=== PATIENT | female | born 1970 | race African-American/Black ===

== ENCOUNTER 2016-08-14 17:06 | Emergency (ER) | payer OTHER ==
[~2016-08-14] VITALS: Ht 167.6 cm; Wt 99.3 kg
[~2016-08-14 17:06] MED LIST: ALBUTEROL0.09 MG/A1 INH; CYCLOBENZAPRINE10 M1 PO; INDOMETHACIN50 MG PO; NAPROSYN 500 M500 MG PO; NAPROSYN500 M1 PO; NORFLEX100 MG PO; PREDNISONE 20MG20 MG PO; VICODIN 300 MG-1 TAB PO; VICODIN 5-3001 EACH PO; ZITHROMAX Z-PA250 M1 PO
--- NOTE | 2016-08-14 19:34 | ED UPPER/LOWER EXTREMITY COMPL ---
History of Present Illness General Chief Complaint: Upper Extremity Injury Stated Complaint: R ARM PAIN/CANT MOVE IT Source: patient Exam Limitations: no limitations Vital Signs & Intake/Output Vital Signs & Intake/Output ED Intake and Output 08/15 0000 08/14 1200 Intake Total Output Total Balance Patient 219 lb Weight Allergies Coded Allergies: NO KNOWN ALLERGIES (08/14/16) Reconcile Medications Albuterol Sulfate (Albuterol Sulfate Hfa) 8.5 GM HFA.AER.AD 2 PUFF INH Q4-6 PRN ASTHMA USE WITH SPACER FOR BEST EFFECT Azithromycin (Zithromax Z-Min) 250 MG CAP 1 DP PO AD SINUSITIS 2 the first day followed by 1 for days 2-5 Cyclobenzaprine HCl 10 MG TABLET 1 TAB PO QPM MUSCLE SPASMS HYDROCODONE/ACETAMINOPHEN (Vicodin 5-300 MG Tablet) 5 MG-300 MG TABLET 1 TAB PO Q6P PRN BACK PAIN Hydrocodone/Acetaminophen (Vicodin 5-300 MG Tablet) 1 EACH TABLET 1 TAB PO Q6HR PRN PAIN Indomethacin 50 MG CAPSULE 1 CAP PO TID PRN PAIN with food Naproxen (Naprosyn) 250 MG TABLET 1 TAB PO BID PRN BACK PAIN Naproxen (Naprosyn) 500 MG TABLET 1 TAB PO BID PAIN Naproxen (Naprosyn) 500 MG TABLET 1 TAB PO BID PRN inflammatoin Orphenadrine Citrate (Norflex) [address] 1 TAB PO BID PRN SPASMS Oxycodone HCl/Acetaminophen (Percocet 5-325 MG Tablet) 5 MG-325 MG TABLET 1-2 TAB PO 4 TIMES/DAY PRN pain Prednisone 20 MG TABLET 3 TAB PO DAILY ASTHMA TAKE WITH FOOD AND AT THE SAME TIME A DAY FOR A TOTAL OF 5 DAYS Prednisone 20 MG TABLET 1 TAB PO BID GOUT Triage Note: PT TO ED FOR 03/27 R ARM PAIN WITH SWELLING. PT REPORTS UNABLE TO MOVE ARM, +CMS TO R ARM. PT REPORTS TAKING VICODIN 0700 TODAY WITHOUT RELIEF. PT MEDICATED WITH 600 MG MOTRIN IN TRIAGE. ?INJURY ON SUNDAY AFTER WALKING DOG. Triage Nurses Notes Reviewed? yes : No Patient currently breastfeeds: No HPI: severe R shoulder pain after she was kneeling down and her dog pulled her ( holding the leash) , felt severe pain in the anterior R shoulder. this was 5 days ago. she has not been able to raise her arm at the shoulder since. severe pain with any motino, swelling, no previous injury, she has leftover vicodin from a previous injury that she was taking without relief. (WAYNE DUNCAN) Past History Travel History Traveled to [place] past 21 day No Medical History Any Pertinent Medical History? see below for history Neurological: NONE EENT: NONE Cardiovascular: NONE Respiratory: ASTHMA CHILD Gastrointestinal: NONE Hepatic: NONE Renal: NONE Musculoskeletal: NONE Psychiatric: NONE Endocrine: NONE Cancer(s): CERVICAL CANCER REQUIRING A TOTAL ABDOMINAL HYSTERECTOMY AND PARTIAL SALPINGO-OOPHORECTOMY DIGITAL STRATEGIST SENIOR MANAGER/Reproductive: CERVICAL CANCER WITH TOTAL ABDOMINAL HYSTERECTOMY AND SINGLE OOPHORECTOMY Tetanus Vaccine: 01/20/13 Surgical History Surgical History: non-contributory Psychosocial History What is your primary language Romansh Tobacco Use: Never used Family History Hx Contributory? No (WAYNE DUNCAN) Review of Systems Review of Systems Constitutional: Reports: see HPI. EENTM: Reports: no symptoms. Respiratory: Reports: no symptoms. Cardiovascular: Reports: no symptoms. Gastrointestinal/Abdominal: Reports: no symptoms. Genitourinary: Reports: no symptoms. Musculoskeletal: Reports: see HPI. Skin: Reports: no symptoms. Neurological/Psychological: Reports: no symptoms. Hematologic/Endocrine: Reports: no symptoms. Immunological: Reports: no symptoms. All Other Systems: Reviewed and Negative (WAYNE DUNCAN) Physical Exam Physical Exam General Appearance: well developed/nourished Comments: Well-developed well-nourished no apparent distress. HEENT: Atraumatic, extraocular motion intact Neck: Supple, no lymphadenopathy Back: Nontender Respiratory: No respiratory distress Extremities: No edema, full range of motion Right shoulder, tenderness is severe anterior and lateral. She has swelling noted anteriorly proximal humeral region. Range of motion is severely limited secondary to pain at the shoulder, she cannot forward elevate or abduct the arm away from her body due to pain. Elbow examination and wrist examination is benign, full range of motion. Neurovascularly intact. Neuro: Alert and oriented x3 Psych: Mood affect normal, normal memory normal judgment. Skin: Warm and dry, no rash on exposed skin (WAYNE DUNCAN) Progress Differential Diagnosis: compartment syndrome, contusion, dislocation, fracture, gout, sprain, tendon injury Plan of Care: Orders Procedure Date/time Status Durable Medical Equipment 08/14 1944 Active Diagnostic Imaging: Viewed by Me: Radiology Read. Discussed w/RAD: Radiology Read. Radiology Impression: PATIENT: BERNY HE PRESENT AGE: 45 PATIENT ACCOUNT NO: [id number] : 74 LOCATION: [facility] ORDERING PHYSICIAN: WAYNE MARIE SERVICE DATE: 08/14/16 EXAM TYPE : RAD - XRY-SHOULDER COMPLETE-RIGHT EXAMINATION: XR SHOULDER, RIGHT CLINICAL INFORMATION: Pain. Evaluate for dislocation. COMPARISON: None TECHNIQUE: Three views of the right shoulder. FINDINGS: The bones and soft tissues are normal. No fracture. Glenohumeral and acromioclavicular alignment is anatomic with normal joint space. No abnormal soft tissue calcifications. IMPRESSION: No fracture or dislocation. DICTATED BY: HOLLY MARI MD DATE/TIME DICTATED:08/14/161947 UTILITY APPRAISER:JENNY Comments: Review of the x-ray by myself, I do see a tiny avulsion at the greater tuberosity suggestive of a rotator cuff rupture. Discusses the patient. I'm also concerned that she may have a biceps tendon rupture proximal aspect. She is placed in a sling and orthopedic follow-up is recommended, she is given pain medication and NSAIDs. (WAYNE DUNCAN) Departure Departure Disposition: HOME OR SELF CARE Condition: Stable Clinical Impression Primary Impression: Rotator cuff rupture Qualifiers: Rotator cuff tear extent: unspecified tear extent Laterality: right Qualified Code: M75.101 - Unspecified rotator cuff tear or rupture of right shoulder, not specified as traumatic Referrals: PATIENT HAS NO PRIMARY CARE DR (PCP/Family) ADELE AMANDA MD Additional Instructions: stay in sling, ice, naprosyn for pain and inflammation, percocet for severe pain. follow up with orthopedist this week. Departure Forms: Customer Survey General Discharge Information Prescriptions: Current Visit Scripts Naproxen (Naprosyn) 1 TAB PO BID PRN inflammatoin #60 TAB Oxycodone HCl/Acetaminophen (Percocet 5-325 MG Tablet) 1-2 TAB PO 4 TIMES/DAY PRN pain #15 TAB (WAYNE DUNCAN) PA/DISCHARGE COORDINATOR Co-Sign Statement Statement: ED Attending supervision documentation- [] I saw and evaluated the patient. I have also reviewed all the pertinent lab results and diagnostic results. I agree with the findings and the plan of care as documented in the FRANK's/DISCHARGE COORDINATOR's documentation. [X] I have reviewed the ED Record and agree with the PA's/DISCHARGE COORDINATOR's documentation. [] Additions or exceptions (if any) to the PAs/DISCHARGE COORDINATOR's note and plan are summarized below: [] (SANDRA SWENSON,LUCIA Benito)
[2016-08-14] MEDS ORDERED: NAPROSYN500 M1 PO (19:48)
[2016-08-14] MEDS ORDERED: PERCOCET 5-3251 EACH PO (19:48)
--- NOTE | 2016-08-14 19:54 | RADIOLOGY REPORT ---
EXAMINATION: XR SHOULDER, RIGHT CLINICAL INFORMATION: Pain. Evaluate for dislocation. COMPARISON: None TECHNIQUE: Three views of the right shoulder. FINDINGS: The bones and soft tissues are normal. No fracture. Glenohumeral and acromioclavicular alignment is anatomic with normal joint space. No abnormal soft tissue calcifications. IMPRESSION: No fracture or dislocation.
[2016-08-14 19:55] VITALS: BP 132/76
== END 2016-08-14 20:09 ==
LOC: ERH 17:06
DX: S46.011A Strain of muscle(s) and tendon(s) of the rotator cuff of right shoulder, initial encounter (principal); X50.9XXA Other and unspecified overexertion or strenuous movements or postures, initial encounter; Y93.89 Activity, other specified
CPT/HCPCS: 73030-RT